=== PATIENT | male | born 1990 | race African-American/Black ===

== ENCOUNTER 2020-12-22 00:16 | Emergency (ER) | payer MEDICARE, OTHER ==
[~2020-12-22 00:16] MED LIST: CATAPRES0.1 MG PO; CHLORTHALIDONE25 MG PO; K-DUR20 MEQ PO; LOSARTAN POTAS100 MG PO; NORVASC5 MG PO; PREDNISONE 20MG20 MG PO
[2020-12-22 01:11] LABS: BASOPHIL 0.5 % (0-2); EOSINOPHIL 2.9 % (0-5); HCT 48.6 % (42.0-52.0); HGB 16.2 g/dl (13.2-18.0); LYMPHOCYTE 38.2 % (15-48); MCH 29.3 pg (25.0-31.0); MCHC 33.3 g/dL (32.0-36.0); MONOCYTE 6.9 % (0-12); MPV 8.7 fL (6.0-9.5); NEUTROPHIL 50.8 % (41-80); NRBC 0; PLT 309 K/uL (150-400); RBC 5.52 M/uL (4.70-6.00); RDW 11.9 % (11.5-14.0)
[2020-12-22 01:24] LABS: INR 1.11 (0.9-1.2); PROTHROMBIN TIME 13.6 SECONDS (11.4-13.6); PTT 30.3 SECONDS (22.2-34.7)
[2020-12-22 01:31] LABS: ALBUMIN 3.8 g/dL (3.4-5.0); BILIRUBIN - TOTAL 0.9 mg/dL (0.2-1.0); BUN/CREAT RATIO (CALC) 20.3 RATIO; CREATININE 1.77 mg/dL (0.67-1.17); GLOBULIN (CALCULATION) 4.4 g/dL; TOTAL PROTEIN 8.2 g/dL (6.4-8.2)
[2020-12-22 01:41] LABS: LACTIC ACID 1.4 mmol/L (0.4-1.9)
[2020-12-22 04:39] LABS: BILIRUBIN NEGATIVE (NEGATIVE); BLOOD TRACE-INTACT Ery/uL (NEGATIVE); CLARITY CLEAR (CLEAR); COLOR YELLOW (YELLOW); GLUCOSE (U) NORMAL (NORMAL); LEUKOCYTES NEGATIVE Leu/uL (NEGATIVE); NITRITE NEGATIVE (NEGATIVE); PROTEIN NEGATIVE (NEGATIVE); SPECIFIC GRAVITY <=1.005 (1.001-1.030); UROBILINOGEN 0.2 mg/dL (0.2-1.0)
[2020-12-22 04:46] LABS: SQUAMOUS EPITHELIAL CELLS RARE
== END 2020-12-22 05:00 | disposition home or self-care (01) ==
LOC: FER 00:16
PROVIDERS: Student in an Organized Health Care Education/Training Program
DX: R07.9 Chest pain, unspecified (principal); J06.9 Acute upper respiratory infection, unspecified; R11.10 Vomiting, unspecified; I12.0 Hypertensive chronic kidney disease with stage 5 chronic kidney disease or end stage renal disease; N18.6 End stage renal disease
CPT/HCPCS: 36415; 71045; 71275; 80053; 81001; 83605; 84484; 85025; 85610; 85730; 93005; J7030; Q9967

== ENCOUNTER 2020-12-24 10:07 | Inpatient (IN) | payer MEDICARE, OTHER ==
[~2020-12-24] VITALS: Ht 167.6 cm; Wt 98.0 kg
[2020-12-24 11:45] LABS: BASOPHIL 0.3 % (0-2); EOSINOPHIL 0.5 % (0-5); HCT 47.4 % (42.0-52.0); LYMPHOCYTE 17.9 % (15-48); MCH 29.4 pg (25.0-31.0); MCHC 33.8 g/dL (32.0-36.0); MONOCYTE 7.4 % (0-12); MPV 8.7 fL (6.0-9.5); NEUTROPHIL 73.3 % (41-80); NRBC 0; PLT 304 K/uL (150-400); RBC 5.45 M/uL (4.70-6.00); RDW 11.9 % (11.5-14.0); WBC 15.1 K/uL (4.0-10.5)
[2020-12-24 11:58] LABS: BILIRUBIN - TOTAL 0.9 mg/dL (0.2-1.0); BUN/CREAT RATIO (CALC) 13.2 RATIO; CREATININE 3.41 mg/dL (0.67-1.17); GLOBULIN (CALCULATION) 4.8 g/dL; POTASSIUM 3.1 mmol/L (3.5-5.1); TOTAL PROTEIN 8.8 g/dL (6.4-8.2)
[2020-12-24 13:05] LABS: BILIRUBIN NEGATIVE (NEGATIVE); BLOOD TRACE-INTACT Ery/uL (NEGATIVE); CLARITY HAZY (CLEAR); COLOR YELLOW (YELLOW); GLUCOSE (U) NORMAL (NORMAL); LEUKOCYTES NEGATIVE Leu/uL (NEGATIVE); NITRITE NEGATIVE (NEGATIVE); PROTEIN 2+ mg/dL (NEGATIVE); SPECIFIC GRAVITY >=1.030 (1.001-1.030); pH 5.5 (5.0-9.0)
[2020-12-24 13:16] LABS: AMORPHOUS URATES CRYSTALS MODERATE; MUCOUS TRACE
[2020-12-24] MEDS ORDERED: AMLODIPINE BESYL5 MG PO (17:18)
[2020-12-24] MEDS ORDERED: COZAAR100 MG PO (17:19)
[2020-12-24] MEDS ORDERED: CHLORTHALIDONE25 MG PO (17:19)
[2020-12-25 06:33] LABS: HCT 41.2 % (42.0-52.0); HGB 13.6 g/dl (13.2-18.0); MCH 28.9 pg (25.0-31.0); MCV 87.7 fL (78.0-100.0); MPV 8.6 fL (6.0-9.5); RBC 4.7 M/uL (4.70-6.00); RDW 11.9 % (11.5-14.0)
[2020-12-25 06:44] LABS: BUN/CREAT RATIO (CALC) 13.9 RATIO; CREATININE 3.45 mg/dL (0.67-1.17); POTASSIUM 3.3 mmol/L (3.5-5.1)
[2020-12-26 06:28] LABS: HCT 40.4 % (42.0-52.0); HGB 13.4 g/dl (13.2-18.0); MCH 29.3 pg (25.0-31.0); MCHC 33.2 g/dL (32.0-36.0); MCV 88.4 fL (78.0-100.0); MPV 8.6 fL (6.0-9.5); RBC 4.57 M/uL (4.70-6.00); RDW 11.9 % (11.5-14.0); WBC 10.5 K/uL (4.0-10.5)
[2020-12-26 06:49] LABS: BUN/CREAT RATIO (CALC) 19.5 RATIO; CREATININE 1.64 mg/dL (0.67-1.17); MAGNESIUM 1.8 mg/dL (1.8-2.4); PHOSPHORUS 4.2 mg/dL (2.6-4.7); POTASSIUM 3.5 mmol/L (3.5-5.1)
[2020-12-26] MEDS ORDERED: CEFDINIR300 MG PO (10:58)
== END 2020-12-26 11:20 | disposition home or self-care (01) | DRG 699 ==
LOC: FER 10:07 → FMS 15:16
PROVIDERS: Emergency Medicine; Internal Medicine Nephrology; ADMIT Hospitalist
DX: N14.1 Nephropathy induced by other drugs, medicaments and biological substances (principal); Q62.0 Congenital hydronephrosis; Q62.11 Congenital occlusion of ureteropelvic junction; N17.9 Acute kidney failure, unspecified; T50.8X5A Adverse effect of diagnostic agents, initial encounter; N18.4 Chronic kidney disease, stage 4 (severe); E11.22 Type 2 diabetes mellitus with diabetic chronic kidney disease; I12.9 Hypertensive chronic kidney disease with stage 1 through stage 4 chronic kidney disease, or unspecified chronic kidney disease; N30.90 Cystitis, unspecified without hematuria; Z20.822 Contact with and (suspected) exposure to COVID-19; D72.829 Elevated white blood cell count, unspecified; E66.01 Morbid (severe) obesity due to excess calories; Z68.34 Body mass index [BMI] 34.0-34.9, adult; R62.50 Unspecified lack of expected normal physiological development in childhood; Z88.2 Allergy status to sulfonamides; Z98.890 Other specified postprocedural states; Z88.8 Allergy status to other drugs, medicaments and biological substances
CPT/HCPCS: 36415; 71045; 71275; 80048; 80053; 81001; 83605; 83735; 83880; 84100; 84484; 85025; 85610; 85730; 93005; J0696; J1885; J2405; J3480; J7030; Q9967; U0002

== ENCOUNTER 2021-02-13 14:23 | Emergency (ER) | payer MEDICARE, OTHER ==
[~2021-02-13 14:23] MED LIST changes: +AMLODIPINE BESYL5 MG PO; +CEFDINIR300 MG PO; +COZAAR100 MG PO
[2021-02-13] MEDS ORDERED: MEDROL 4MG DOSEP4 MG PO (16:03)
== END 2021-02-13 16:13 | disposition home or self-care (01) ==
LOC: FER 14:23
DX: T63.441A Toxic effect of venom of bees, accidental (unintentional), initial encounter (principal); F79 Unspecified intellectual disabilities
CPT/HCPCS: J1100; J1200; J7030